=== PATIENT | male | born 1970 | race Caucasian/White ===

== ENCOUNTER 2018-11-02 15:10 | Emergency (ER) | payer BC ==
[~2018-11-02] VITALS: Ht 175.3 cm; Wt 106.3 kg
[2018-11-02 15:14] VITALS: BP 150/85
--- NOTE | 2018-11-02 15:20 | NUR ---
PT AMBULATED TO BED 9
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
[2018-11-02] MEDS ORDERED: IBUPROFEN 600 MG TAB PO ONE (16:30)
--- NOTE | 2018-11-02 17:01 | NUR ---
X-RAY AT BEDSIDE.
[2018-11-02] MEDS ORDERED: LIDOCAINE 1% 500 MG/50 ML VIAL INJ SCH (17:15)
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
[2018-11-02] MEDS ORDERED: LIDOCAINE MPF 1% 5mL VIAL ONE (17:26)
--- NOTE | 2018-11-02 17:33 | NUR ---
PROVIDER AT BEDSIDE FOR LAC REPAIR.
[2018-11-02] MEDS ORDERED: ONDANSETRON 4 MG ODT PO ONE (17:35)
[2018-11-02] MEDS ORDERED: HYDROcodone/APAP 7.5/325 MG 1 TAB PO ONE (17:35)
--- NOTE | 2018-11-02 17:38 | NUR ---
X-RAY AT BEDSIDE.
[2018-11-02 18:12] VITALS: BP 163/97
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
== END 2018-11-02 18:15 | disposition home or self-care (01) ==
LOC: MED 15:10
DX: S62.611A Displaced fracture of proximal phalanx of left index finger, initial encounter for closed fracture (principal); S01.01XA Laceration without foreign body of scalp, initial encounter; E11.9 Type 2 diabetes mellitus without complications; Y04.2XXA Assault by strike against or bumped into by another person, initial encounter; Y93.89 Activity, other specified; Y92.89 Other specified places as the place of occurrence of the external cause; Y99.8 Other external cause status
CPT/HCPCS: 12002; 26725; 73140; 90471; 90715; 99284; J2001; Q0092; Q0162